=== PATIENT | female | born 1970 | race Hispanic/Latino ===

== ENCOUNTER 2017-11-27 07:06 | Day surgery (SDC) | payer BC ==
[2017-11-27] MEDS ORDERED: Propofol 10 mg/ml Inj (20 ML) ONE (09:29)
[2017-11-27] MEDS ORDERED: Succinylcholine 200 mg/10 ml Inj IV ONE (09:29)
[2017-11-27] MEDS ORDERED: Rocuronium 10 mg/ml (5 ml) ONE (09:29)
[2017-11-27] MEDS ORDERED: Midazolam 2 MG/2 ML VIAL ONE (09:29)
[2017-11-27] MEDS ORDERED: Sevoflurane - Inhalation Anesthetic Liq (250 ml) ONE (09:34)
[2017-11-27] MEDS ORDERED: Desflurane Inhalation Anesthetic Liq (240 ml) ONE (09:36)
[2017-11-27 09:38] VITALS: O2SAT 100; BMI 31.9
[2017-11-27] MEDS ORDERED: Bupivacaine HCl 0.5% PF (10 ml) Inj ONE (09:58)
[2017-11-27] MEDS ORDERED: Lidocaine 2% w Epi 1:100,000 Inj IJ ONE (09:58)
[2017-11-27] MEDS ORDERED: MethylPREDNISolone Depo 40 mg/ml Inj ONE (09:58)
[2017-11-27] MEDS ORDERED: Lactated Ringer's 1,000 ML IV ONE (10:28)
[2017-11-27] MEDS ORDERED: Lidocaine 2% w Epi 1:200,000 Pf Inj IJ ONE ×2 (11:00)
[2017-11-27] MEDS ORDERED: Bupivacaine HCl 0.5% PF (10 ml) Inj IJ ONE ×2 (11:14→11:28)
[2017-11-27] MEDS ORDERED: MethylPREDNISolone Depo 40 mg/ml Inj IM ONE ×2 (11:14→11:28)
[2017-11-27] MEDS ORDERED: Oxycodone/Acetaminophen 5/325 mg Tab PO PRN (11:33)
--- NOTE | 2017-11-27 11:33 | PCM.SURG1 ---
Surgeon's Initial Post Op Note - Surgeon's Notes Surgeon: Beatriz Ugarte MD Lpn Home Health: Tiffanie Rose PA-C Type of Anesthesia: General Endo Pre-Operative Diagnosis: Left knee meniscus tear Operative Findings: see op report Post-Operative Diagnosis: same as pre-op dx Operation Performed: Left knee arthroscopy, partial meniscectomy, synovectomy, chondroplasty Specimen/Specimens Removed: none Estimated Blood Loss: EBL {In ML}: 3 Date of Surgery/Procedure: 11/27/17 Time of Surgery/Procedure: 10:45
[2017-11-27 11:51] VITALS: RESP 18
[2017-11-27] MEDS ORDERED: HYDROmorphone 0.5 mg/0.5 ml ISec ONE (12:29)
--- NOTE | 2017-11-27 14:31 | OP ---
PROCEDURE DATE: 11/27/2017 ATTENDING SURGEON: Beatriz Ugarte MD. FOOD MIXER ASSEMBLER: Tiffanie Rose PA-C. PREOPERATIVE DIAGNOSES: 1. Left knee medial meniscal tear. 2. Left knee synovitis. 3. Loose bodies. 4. 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 POSTOPERATIVE DIAGNOSES: 1. 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 2. Degenerative medial meniscal tear. 3. Lateral meniscal tear of the body and posterior horn. 4. Impinging osteophyte of the medial femoral condyle and medial gutter. 5. 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 6. 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 7. Anterior patellofemoral adhesions. 8. Multiple soft tissue loose bodies. PROCEDURES: 1. Left knee arthroscopy, partial, medial and lateral meniscectomy. 2. Anterior patellofemoral lysis of adhesions. 3. Abrasion arthroplasty of medial femoral condyle and medial gutter. 4. Chondroplasty of the lateral femoral condyle. 5. Major synovectomy of all three compartments. 6. Removal of loose bodies. 7. Injection of the large joint. TYPE OF ANESTHESIA: General. ESTIMATED BLOOD LOSS: 5 mL. SPECIMENS: None. CLOSURE: Primary. FLUIDS: See anesthesia sheet. COMPLICATIONS: None. INDICATIONS: After failing a course of nonoperative therapy, the patient elected to undergo the above procedure. In the office, the risks and possible complications of knee arthroscopy were discussed in detail with the patient. These risks include but are not limited to continued pain, lack of motion, infection, vascular injury, DVT / PE, nerve injury including peroneal nerve dysfunction, reflex sympathetic dystrophy, compartment syndrome, unforeseen medical and/or anesthesia complications, limb loss, and even . The patient expressed an understanding of the risks and possible benefits of the procedure, and is also aware of the alternatives to surgery. An informed consent was obtained, and was checked immediately preop. DESCRIPTION OF PROCEDURE: The patient was correctly identified in the holding area and the left knee was marked with the surgeon's initials. The patient was transported to the operating room and placed in the supine position, general anesthesia was obtained. A preoperative orthopedic exam revealed effusion of 2+, range of motion of 3 to 110, stable to varus and valgus stress. The lower extremity was prepped and draped in the standard fashion, and the thigh was placed in an arthroscopic leg handy. A well-padded tourniquet was applied to the patient's thigh. Timeout was completed confirming the correct operative site. Esmarch was used to exsanguinate the leg and tourniquet was inflated to 300 mmHg. A standard anterolateral viewing portals were made with a #11 blade after subdermal 1% lidocaine with epinephrine injection. The knee was distended with normal saline and epinephrine in a 1:1,000,000 mixture, at an initial pressure of 35 mmHg. The arthroscope was inserted from the anterolateral portal and moved into the medial compartment. Next, the anteromedial working portal was made with spinal needle localization. The arthroscopic probe was inserted, and all compartments of the knee were sequentially visualized. FINDINGS: Arthroscopic examination of the knee revealed: 1. Major synovitis of all three compartments. 2. Degenerative tear of the posterior horn, medial meniscus. 3. Tear of the lateral meniscus extending into the posterior horn and the body. 4. Impinging osteophyte of medial femoral condyle and medial gutter. 5. 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 6. 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 7. Anterior patellofemoral adhesions. 8. Multiple soft tissue loose bodies. The anterior cruciate ligament and posterior cruciate ligament were intact. Partial medial meniscectomy was performed with a combination of hand instruments and a 4.0-mm motorized shaver. The meniscus was debrided to a smooth, stable border with an excursion of less than 3 mm. Partial lateral meniscectomy was performed with a combination of hand instruments and a 4.0-mm motorized shaver. The meniscus was debrided to a smooth, stable border with an excursion of less than 5 mm. The motorized shaver was used to mechanically debride the loose, fibrillated and fragmented chondral edges of the lateral femoral condyle to a stable border. Extreme care was taken to not disrupt the adjacent chondral surface. The edges of injured chondral area were probed to ensure stability after the shaver was withdrawn from the knee. The motorized shaver was used to perform a synovectomy of the compartments. The hypertrophic synovium was resected with minimal bleeding. No synovial incarceration was noted after synovectomy when the knee was put through a full passive range of motion. At this point, multiple soft tissue loose bodies were noted in the medial gutter areas. Using the aforementioned arthroscopic portals, loose bodies were removed with arthroscopic techniques including graspers and the motorized shaver. Due to injuries to the patellofemoral region resulting in organized scar and suprapatellar adhesions, a decision was made to perform and anterior interval release to decrease the patellofemoral joint reaction force and relieve pressures over the patella and trochlea. The synovectomy was carried over to the suprapatellar pouch and an anterior interval release was performed over the anterior compartment and the suprapatellar pouch with the motorized shaver. The anterior fat pad was released and debulked during this procedure. The inflow was shut off and the area checked for hemostasis. Small bleeders were coagulated with the radiofrequency device. At this point, the impinging osteophyte of medial femoral condyle and medial gutter region was addressed utilizing the mechanical shaver. The area was debrided, and an abrasion chondroplasty was performed to prevent further impingement. Care was taken to preserve the surrounding intact chondral and osseous surfaces. The perimeter of the debrided area was inspected for loose chondral flaps, which were smoothed with the shaver. WASHOUT: The medial and lateral gutters were checked for loose bodies. At this point, the knee was then copiously irrigated utilizing the irrigation solution. Arthroscopic washout was performed with free flowing outflow through the cannula with the arthroscope removed. Finally, 1 mL of 40 mg Depo-Medrol mixed with 9 mL of 0.25% Marcaine was injected within the knee joint. CLOSURE: Portal closure was then accomplished utilizing sutures, and sterile dressing was applied consisting of Xeroform, 4x4's, sterile gauze, and two ABDs with a 6-inch Hugn wrap. In addition, an "Ice-Man" automated portable cooling system pad was applied to the knee, over top of the sterile gauze and underneath the Hung wrap. This modality is medically necessary to maximize postoperative analgesia and to decrease the use of narcotic analgesics in the postoperative period. The sponge and needle count was correct at the end of the case, and all instruments were inspected and free of defects. Anesthesia was reversed and the patient was transferred to the recovery room in stable condition, having tolerated the procedure well. The attending surgeon was scrubbed and present throughout the critical portions of the case, including all of the intra-articular arthroscopic procedures. Post operatively, the patient will be weight bearing as tolerated and will utilize my standard post arthroscopy rehab protocol. The patient will be started on straight leg raising and quadriceps setting exercises in the recovery room and will progress to prone hangs as well as prone knee flexion exercises using an active assisted construct. During this procedure, I was assisted by Tiffanie Rose PA-C, who assisted in positioning the patient on the operating room table as well as transferring the patient from the operating room table to the recovery room stretcher. In addition, Tiffanie Rose PA-C, assisted me during the actual operative procedure by positioning the patient's extremity to allow for easier arthroscopic access to all areas of the joint. The presence of Tiffanie Rose PA-C, as my operative printing assistant, was medically necessary to ensure the utmost safety of the patient in the pre, intra-, and postoperative periods. Beatriz Ugarte MD
[2017-11-27 16:29] VITALS: BP 144/76; PULSE 70; TEMP 98.6
== END 2017-11-27 16:25 | disposition home or self-care (01) ==
LOC: H.OPSURG 07:06
PROVIDERS: ATTEND Orthopaedic Surgery
DX: M67.862 Other specified disorders of synovium, left knee (principal); M25.462 Effusion, left knee; E66.9 Obesity, unspecified; M54.9 Dorsalgia, unspecified
CPT/HCPCS: 29876; 29880; 97116; 97161; G8978; G8979; G8980; J0171; J0330; J0690; J1030; J1170; J2001; J2250; J2405; J2704; J3010; J7120